=== PATIENT | female | born 1995 | race Caucasian/White ===

== ENCOUNTER 2021-06-29 17:38 | Emergency (ER) | payer MEDICAID ==
[~2021-06-29] VITALS: Ht 154.9 cm; Wt 70.0 kg
[2021-06-29] MEDS ORDERED: ARIP20TA2 MT (21:56)
[2021-06-29] MEDS ORDERED: ARIPIPRAZOLE 5MG TABLET PO ONE ×2 (22:00)
[2021-06-29 22:12] VITALS: BP 121/81
== END 2021-06-30 00:11 | disposition home or self-care (01) ==
LOC: ER 17:38
DX: Z76.0 Encounter for issue of repeat prescription (principal); F20.9 Schizophrenia, unspecified; F32.A Depression, unspecified
CPT/HCPCS: 99283